=== PATIENT | female | born 1970 | race Caucasian/White ===

== ENCOUNTER 2017-10-25 13:00 | Outpatient (CLI) | payer OTHER ==
--- NOTE | 2017-10-25 13:39 | RAD ---
TWO VIEW CHEST: INDICATION: Dyspnea. FINDINGS: There is a left chest port. Cardiac silhouette is within normal limits of size. No effusion, infarc t, or lobar consolidation. Mild linear density is seen at the lateral left mid lung zone. IMPRESSION: No focal consolidation. POS: [facility]
== END 2017-10-25 13:01 | disposition home or self-care (01) ==
LOC: RAD 13:00
PROVIDERS: ATTEND Internal Medicine Critical Care Medicine
DX: R06.00 Dyspnea, unspecified (principal)
CPT/HCPCS: 71046

== ENCOUNTER 2018-01-22 12:42 | Outpatient (CLI) | payer OTHER ==
--- NOTE | 2018-01-22 13:47 | RAD ---
2 VIEWS CHEST: Date: 01/22/18 HISTORY: Dyspnea. FINDINGS: PA and lateral views of chest obtained. Comparison made to previous exam from 10/25/17. Two views of the chest demonstrate a left subclavian MediPort catheter in place. The lungs are well a erated. No evidence of active intrathoracic disease seen. No evidence of effusions, pneumonia, or pne umothorax seen. IMPRESSION: Normal 2 views chest. POS: [facility]
== END 2018-01-22 12:43 | disposition home or self-care (01) ==
LOC: RAD 12:42
PROVIDERS: ATTEND Internal Medicine Critical Care Medicine
DX: R06.00 Dyspnea, unspecified (principal)
CPT/HCPCS: 71046

== ENCOUNTER 2018-06-11 10:37 | Outpatient (CLI) | payer OTHER ==
--- NOTE | 2018-06-11 11:34 | RAD ---
PA AND LATERAL CHEST: History: Dyspnea. FINDINGS: Heart size is within normal limits. A left sided Mediport type catheter is again demonstrated. Slight obscuration of the right heart border is similar to the prior exam and may just be related to fat pa d in this region. No pulmonary nodules identified. No significant bony findings. IMPRESSION: Stable exam. POS: [facility]
== END 2018-06-11 10:38 | disposition home or self-care (01) ==
LOC: RAD 10:37
PROVIDERS: ATTEND Internal Medicine Critical Care Medicine
DX: R06.00 Dyspnea, unspecified (principal)
CPT/HCPCS: 71046

== ENCOUNTER 2018-09-13 09:16 | Outpatient (CLI) | payer OTHER ==
--- NOTE | 2018-09-13 10:09 | RAD ---
CHEST 2 VIEWS: Date: 09/13/18 HISTORY: 48-year-old female with history of dyspnea. COMPARISON: 06/11/18. FINDINGS: Heart size is within normal limits. The lungs are clear. Mild stable increased markings bilaterally. No confluent pneumonia, overt edema, or pleural effusion. IMPRESSION: No acute intrathoracic disease. Stable from prior study. POS: [facility]
== END 2018-09-13 09:17 | disposition home or self-care (01) ==
LOC: RAD 09:16
PROVIDERS: ATTEND Internal Medicine Critical Care Medicine
DX: R06.00 Dyspnea, unspecified (principal)
CPT/HCPCS: 71046

== ENCOUNTER 2022-04-27 09:16 | Outpatient (CLI) | payer OTHER | END 2022-04-27 09:17 | disposition home or self-care (01) | LOC: RAD 09:16 | PROVIDERS: ATTEND Internal Medicine Critical Care Medicine | DX: R06.00 Dyspnea, unspecified (principal) | CPT/HCPCS: 71046 ==

== ENCOUNTER 2023-02-13 17:30 | Outpatient (CLI) | payer OTHER | END 2023-02-13 17:31 | disposition home or self-care (01) | LOC: SLEEPLAB 17:30 | PROVIDERS: ATTEND Internal Medicine | DX: G47.33 Obstructive sleep apnea (adult) (pediatric) (principal); R53.83 Other fatigue; F41.9 Anxiety disorder, unspecified; E66.9 Obesity, unspecified; G47.00 Insomnia, unspecified; I10 Essential (primary) hypertension; R09.02 Hypoxemia | CPT/HCPCS: 95800 ==

== ENCOUNTER 2023-06-21 11:55 | Outpatient (CLI) | payer OTHER | END 2023-06-21 11:56 | disposition home or self-care (01) | LOC: SCSRAD 11:55 | PROVIDERS: ATTEND Family Medicine | DX: R22.0 Localized swelling, mass and lump, head (principal) | CPT/HCPCS: 70220 ==

== ENCOUNTER 2024-07-30 07:49 | Outpatient (CLI) | payer OTHER ==
[2024-07-30 11:47] LABS: #Basophils 0.04 10x3/uL (0.0-0.2); %Basophils 0.4 % (0.0-1.0); %Eosinophils 2.1 % (0.0-10.0); %Lymphocytes 25.1 % (21.0-51.0); %Monocytes 5.5 % (0.0-10.0); %Neutrophils 66.6 % (42.0-75.0); Hematocrit 47.6 % (36.0-47.0); Hemoglobin 14.8 g/dL (12.0-16.0); Mean Corpuscular HGB CONC 31.1 g/dL (32.0-36.0); Mean Corpuscular Hemoglobin 28.1 pg (27.0-31.0); Mean Corpuscular Volume 90.5 fL (78.0-98.0); Mean Platelet Volume 11.2 fL (7.4-10.4); Platelet Count 284 10x3/uL (130-400); RBC Distribution Width 14.5 % (11.5-14.5); Red Blood Cell (RBC) Count 5.26 mill/uL (4.20-5.40)
[2024-07-30 12:06] LABS: ALT (SGPT) 22 U/L (8-55); AST (SGOT) 17 U/L (5-34); Albumin 3.7 g/dL (3.5-5.0); Alkaline Phosphatase 97 U/L (40-110); Anion Gap 16 mmol/L (10-20); BUN (Urea Nitrogen) 13 mg/dL (9.8-20.1); Bilirubin, Total 0.3 mg/dL (0.2-1.2); Calc. Creatinine Clearance 0 mL/min (70-130); Calcium 9.4 mg/dL (7.8-10.44); Carbon Dioxide 22 mmol/L (22-29); Chloride 109 mmol/L (98-107); Estimated GFR 91; Globulin 4.2 g/dL (2.4-3.5); Glucose 85 mg/dL (70-105); Potassium 3.8 mmol/L (3.5-5.1); Protein, Total 7.9 g/dL (6.0-8.3); Sodium 143 mmol/L (136-145)
== END 2024-07-30 07:50 | disposition home or self-care (01) ==
LOC: LABBT 07:49
PROVIDERS: ATTEND Surgery
DX: Z01.818 Encounter for other preprocedural examination (principal); R22.32 Localized swelling, mass and lump, left upper limb
CPT/HCPCS: 80053; 85025; 93005; 93010

== ENCOUNTER 2024-08-01 08:29 | Day surgery (SDC) | payer OTHER ==
[2024-07-30 08:16] VITALS: BMI 44.5
[2024-08-01] MEDS ORDERED: Dexamethasone 20 MG/5 ML VIAL ONE (12:46)
[2024-08-01] MEDS ORDERED: Ondansetron PF 4 MG/2 ML Vial ONE (12:46)
[2024-08-01] MEDS ORDERED: PROPOFOL 20 ML ONE ×2 (12:46→12:55)
[2024-08-01] MEDS ORDERED: Lidocaine 1% PF 5 ML VIAL ONE (12:46)
[2024-08-01] MEDS ORDERED: fentaNYL PF 100 MCG/2 ML SYRINGE ONE (12:46)
[2024-08-01] MEDS ORDERED: Midazolam HCl 2 mg/2 ml Vial ONE (12:47)
[2024-08-01] MEDS ORDERED: EPINEPHrine 1 MG/ML VIAL ONE (12:52)
[2024-08-01] MEDS ORDERED: Lidocaine 2% PF 5 ML VIAL ONE ×2 (12:52→12:55)
[2024-08-01] MEDS ORDERED: Bupivacaine PF 0.5% 30 ML VIAL ONE (12:52)
[2024-08-01] MEDS ORDERED: LevoFLOXacin D5W 500 mg (100 mL) BAG ONE (13:00)
== END 2024-08-01 14:30 | disposition home or self-care (01) ==
LOC: SDC 08:29
PROVIDERS: ATTEND Surgery
PROC: 07B60ZX Excision of Left Axillary Lymphatic, Open Approach, Diagnostic (ICD-10-PCS; principal; 2024-08-01)
DX: I88.9 Nonspecific lymphadenitis, unspecified (principal); I10 Essential (primary) hypertension; J45.909 Unspecified asthma, uncomplicated; F41.9 Anxiety disorder, unspecified; F32.A Depression, unspecified; F17.200 Nicotine dependence, unspecified, uncomplicated; Z85.3 Personal history of malignant neoplasm of breast; Z87.59 Personal history of other complications of pregnancy, childbirth and the puerperium; Z90.89 Acquired absence of other organs; Z99.81 Dependence on supplemental oxygen; Z88.1 Allergy status to other antibiotic agents; Z88.2 Allergy status to sulfonamides; Z91.018 Allergy to other foods; Z79.51 Long term (current) use of inhaled steroids; Z79.899 Other long term (current) drug therapy
CPT/HCPCS: 36416; 88184; 88307; 88312; J0171; J0665; J1100; J1956; J2250; J2405; J2704